=== PATIENT | male | born 1975 | race Caucasian/White ===

== ENCOUNTER 2019-02-07 08:31 | Day surgery (SDC) | payer BC ==
[~2019-02-07] VITALS: Ht 175.3 cm; Wt 96.7 kg
[2019-02-07] VITALS (19 sets, daily range): BP systolic 99–158; BP diastolic 55–94
[2019-02-07] MEDS ORDERED: OMEP20TA5 PO (09:01)
[2019-02-07] MEDS ORDERED: CYCL-394 PO (09:01)
[2019-02-07] MEDS ORDERED: normal saline 1000ml 1,000 ML IV PRN (09:15)
[2019-02-07 09:50] LABS: ALBUMIN 4.1 G/DL (3.4-5.0); ANION GAP 7 (8-16); BLOOD UREA NITROGEN 12 MG/DL (7-18); BUN/CREATININE RATIO 10.3 (5.4-32.0); CALCIUM 9.5 MG/DL (8.5-10.1); CHLORIDE 106 MMOL/L (99-107); CREATININE 1.17 MG/DL (0.60-1.10); GLUCOSE 100 MG/DL (70-104); POTASSIUM 3.8 MMOL/L (3.5-5.1); SODIUM 141 MMOL/L (135-145); TOTAL CARBON DIOXIDE 28.1 MMOL/L (24-32); eGFR 67 ML/MIN
[2019-02-07 09:54] LABS: BASOPHILS % (AUTO) 0.3 % (0-1); EOSINOPHILS # (AUTO) 0.1 X10'3 (0-0.9); EOSINOPHILS % (AUTO) 1.9 % (0-6); HEMATOCRIT 46.6 % (42.0-52.0); HEMOGLOBIN 15.8 g/dl (14.0-17.9); LYMPHOCYTES # (AUTO) 1.3 X10'3 (1.1-4.8); MEAN CORPUSCULAR HEMOGLOBIN 29.8 PG (27.0-31.0); MEAN CORPUSCULAR HGB CONC 33.8 g/dL (33.0-36.5); MEAN CORPUSCULAR VOLUME 88.1 FL (78-98); MEAN PLATELET VOLUME 8.5 FL (7.4-10.4); MONOCYTES # (AUTO) 0.4 X10'3 (0-0.9); MONOCYTES % (AUTO) 8.4 % (2-12); NEUTROPHILS # (AUTO) 2.8 X10'3 (1.8-7.7); NEUTROPHILS % (AUTO) 61.4 % (42-75); PLATELET COUNT 222 X10'3 (140-440); RED BLOOD COUNT 5.29 X10'6 (4.70-6.10); RED CELL DISTRIBUTION WIDTH 13.4 % (11.5-14.5); WHITE BLOOD COUNT 4.6 X10'3 (4.5-11.0)
[2019-02-07] MEDS ORDERED: normal saline 1000ml 1,000 ML IV SCH (10:50)
[2019-02-07] MEDS ORDERED: midazolam 2 mg/2 ml injection ONE (11:23)
[2019-02-07] MEDS ORDERED: fentaNYL/PF 50MCG/1 ML 2ML syringe ONE ×2 (11:23→12:08)
== END 2019-02-07 14:40 | disposition home or self-care (01) ==
LOC: SSTAY O 08:31
PROVIDERS: ATTEND Radiology Diagnostic Radiology
DX: D36.14 Benign neoplasm of peripheral nerves and autonomic nervous system of thorax (principal); Z88.8 Allergy status to other drugs, medicaments and biological substances; Z79.899 Other long term (current) drug therapy
CPT/HCPCS: 20206; 36415; 77012; 80048; 85025; 85610; J2250; J3010; J7030; 99152; 99153

== ENCOUNTER 2021-06-02 10:48 | Emergency (ER) | payer BC ==
[~2021-06-02] VITALS: Ht 175.3 cm; Wt 100.0 kg
[~2021-06-02 10:48] MED LIST: CYCL-394 PO; OMEP20TA5 PO
[2021-06-02 11:20] VITALS: BP 130/93
[2021-06-02] MEDS ORDERED: ibuprofen tablet 400 MG TABLET PO ONE (12:05)
[2021-06-02] MEDS ORDERED: dexamethasone 4mg tablet PO ONE (12:05)
[2021-06-02] MEDS ORDERED: benzonatate 100mg capsule PO ONE (12:05)
[2021-06-02] MEDS ORDERED: ibuprofen 200mg tablet PO ONE (12:10)
[2021-06-02] MEDS ORDERED: NAPR-56 PO (12:46)
[2021-06-02] MEDS ORDERED: BENZ-16 PO (12:46)
[2021-06-02] MEDS ORDERED: GUAI120L55 PO (12:46)
[2021-06-02] MEDS ORDERED: DEXA6TAB6 PO (12:46)
[2021-06-02] MEDS ORDERED: AZIT-63 PO (12:46)
[2021-06-02] MEDS ORDERED: LEVO500T89 PO (13:01)
== END 2021-06-02 13:14 | disposition home or self-care (01) ==
LOC: ER 10:49
DX: U07.1 COVID-19 (principal); J12.82 Pneumonia due to coronavirus disease 2019; R05 Cough; Z79.2 Long term (current) use of antibiotics; Z79.899 Other long term (current) drug therapy
CPT/HCPCS: 71045; 99284